=== PATIENT | female | born 1965 | race Caucasian/White ===

== ENCOUNTER 2016-05-08 19:09 | Inpatient (IN) | payer BC ==
--- NOTE | ~2016-05-08 | CN ---
Consultation Report [facility] [address] [place]. [address] NAME: GARY VIRK : 69 STATUS : ADM IN [facility]#: [id number] AGE: 51 ADM/REG DATE : 05/08/16 MR#: [id number] REPORT SERV DATE: 05/10/16 DICTATED BY: KWAKU MARES DATE: 05/10/16 REPORT STATUS : Draft TRANSCRIBED BY: MODL DATE: 05/10/16 INFECTIOUS DISEASE CONSULT DATE OF CONSULTATION: REASON FOR REFERRAL: Evaluation and treatment of gram-negative beata sepsis. HISTORY OF PRESENT ILLNESS: The patient is a 51-year-old female. She has history of peptic ulcer disease, past nephrolithiasis, supraventricular tachycardia. She has had GI bleeding before that necessitated partial bowel resection. She had a hysterectomy in 2014 and said she has begun to have more common and frequent urinary tract infection since then. She developed symptoms 1 just over a week ago with some dysuria, increased urinary frequency. 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 She had her urine checked in the ER. Urinalysis appeared to be infected with significant pyuria. It was not cultured. She was started empirically on Septra but continued to worsen and by the end of last week developed fevers and rigors, malaise, nausea, left flank pain. She came in, was admitted on the . She had fevers as high as 103, elevated white blood cell count. Urinalysis that again showed large leukocyte esterase, greater than 182 white blood cells. She was given a dose of Rocephin in the emergency room and then started on cefepime. Her temperature still spiked over 102 last night. White blood cell count improved. She still feels significant malaise and flu-like symptoms. The urine is growing E. coli, greater than 100,000 colonies that not surprisingly is resistant to trimethoprim sulfa, also resistant to ampicillin. It is sensitive to cefazolin and to gentamicin. Her blood cultures now positive one of two for gram-negative beata that appears to be E. coli. She did have both ovaries removed at the time of her hysterectomy in 2014 but has been on estrogen patches since then. PAST MEDICAL HISTORY: Otherwise unremarkable. MEDICATIONS: As mentioned above. ALLERGIES: SHE HAS NO KNOWN ANTIMICROBIAL ALLERGIES. SOCIAL HISTORY: She, as stated, works in the emergency room. 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 She is , nonsmoker. No history of alcohol or substance abuse. FAMILY HISTORY: Noncontributory. PHYSICAL EXAMINATION: GENERAL: She appears to not feel well but otherwise nontoxic. She is alert and oriented x3. VITAL SIGNS: Her temperature reached over 102 last night but at present is 99 with a pulse of 90, respirations 18, blood pressure 107/50, weight 103 kg. HEENT: Sclerae clear. No oral lesions. NECK: Supple without lymphadenopathy, meningeal signs. Consultation Report [place] [id number] [address] NAME: GARY VIRK : 69 STATUS : ADM IN PAT#: [id number] AGE: 51 ADM/REG DATE : 05/08/16 MR#: [id number] REPORT SERV DATE: 05/10/16 DICTATED BY: KWAKU MARES DATE: 05/10/16 REPORT STATUS : Draft TRANSCRIBED BY: NIDHI DATE: 05/10/16 LUNGS: Clear. HEART: Regular rate and rhythm. ABDOMEN: Soft, mildly tender without guarding or rebound. Positive bowel sounds are heard. EXTREMITIES: Without clubbing, cyanosis, or edema. No swollen, red, or hot joints. No rashes noted. IV site, left antecubital fossa shows no signs of inflammation. LABORATORY DATA: White count was 13.5 when she came in with an unremarkable differential. It is 7.8 today with hematocrit 34.3, platelets 180. BUN and creatinine 3 and 0.63. Procalcitonin surprisingly at admission was 0.38. Liver function tests within normal limits. Her abdomen and pelvis were CT'd when she came in without contrast and there was some subtle stranding of the perirenal fat planes but otherwise nothing seen. No evidence of stones or obstruction. IMPRESSION: Pyelonephritis with associated sepsis from an E. coli that was resistant to trimethoprim sulfa, she was being treated with an outpatient. RECOMMENDATION: 1. Continue the cefepime. 2. We will add gentamicin for the next couple of days to try to clear the bacteremia faster. 3. I will follow the patient with you. I appreciate very much your consulting on this patient. CLAUDE Kwaku Mares M.D. / [id number] CC: MD ТАТЬЯНА Bautista
--- NOTE | ~2016-05-08 | DS ---
Discharge Summary [facility] [address] [place]. [address] NAME: GARY VIRK : 69 STATUS : DIS IN PAT#: [id number] AGE: 51 ADM/REG DATE : 05/08/16 MR#: [id number] REPORT SERV DATE: 05/14/16 DICTATED BY: BERLIN HARTLEY DATE: 05/13/16 REPORT STATUS : Draft TRANSCRIBED BY: NIDHI DATE: 05/13/16 ADMISSION DATE: 05/08/2016 DISCHARGE DATE: 05/13/2016 DISCHARGE DIAGNOSES: Include: 1. Sepsis syndrome, present on admission. 2. Escherichia coli bacteremia. 3. Urinary tract infection, pyelonephritis, Escherichia coli. 4. Hypoalbuminemia. 5. Hypotension, that is resolved. 6. Constipation, that is resolved. 7. History of gastric bypass. DISCHARGE MEDICATIONS: As follows vitamin D3 10,000 units daily; Lexapro 20 mg daily; estradiol 0.1 mg patch topically Tuesday and ; Ambien 10 mg at bedtime p.r.n. for sleep; Phenergan 25 mg every 6 hours p.r.n.; Zofran 4 mg every 6 hours p.r.n. for nausea; vitamin B12 1000 mcg every 30 days; iron glycinate 28 mg daily; Zantac 150 mg at bedtime; Tylenol 500 to 1000 mg daily p.r.n. for fever; Women's Gummy vitamin 2 tablets daily; vitamin B12 2500 mcg sublingual daily p.r.n. for energy; and Cipro 500 mg p.o. twice a day for seven days, prescription written for that. HISTORY OF PRESENT ILLNESS: This is a very pleasant 51-year-old female, who presented with left flank pain and urinary tract infection. Please see initial H and P of Dr. Rik Thomas. The patient was admitted to the Hospitalist Service for further evaluation and treatment. She was placed on empiric antibiotic therapy. Lab work and cultures were obtained. CONSULTS DURING THIS ADMISSION: Include Infectious Disease, Dr. Koffi Cameron. PROCEDURES AND IMAGING DURING THIS ADMISSION: Include a CT of the abdomen and pelvis that showed no acute abdominal or pelvic pathology. HOSPITAL COURSE: She was continued on her IV antibiotics of cefepime and given IV hydration as well while cultures were followed as she did have some episodes of hypotension, but this improved with IV boluses. Infectious Disease, Dr. Cameron continue cefepime and did give dosage of gentamicin. The patient tolerated this well. Kidney function remained stable. She was able to moved out of the IMCU to a telemetry floor, where she did have some problems with constipation, but this resolved with administration of Dulcolax suppository. After discussion with Dr. Cameron, it was determined she would be able to be discharged home on seven more days of Cipro antibiotic. PICC line was discontinued, and she was discharged on 05/13/2016 with above medication regimen and I have updated the patient and the patient's at bedside, and they are in agreement with this plan. Going forward, I have encouraged her on her p.o. intake, in particularly protein. Given her low albumin and follow up with primary care as scheduled, and also have instructed to follow up outpatient Urology, given the frequency of her of urinary tract infections over the past few years. Greater than 30 minutes were spent for medication teaching, followup planning, and further Discharge Summary [address] [address] NAME: GARY VIRK : 69 STATUS : DIS IN PAT#: [id number] AGE: 51 ADM/REG DATE : 05/08/16 MR#: [id number] REPORT SERV DATE: 05/14/16 DICTATED BY: BERLIN HARTLEY DATE: 05/13/16 REPORT STATUS : Draft TRANSCRIBED BY: NIDHI DATE: 05/13/16 disposition. MIKAYLA/NIDHI Berlin Hartley NP / [id number] CC: Onur Boyd
--- NOTE | ~2016-05-08 | HP ---
History And Physical [place] [id number] [facility] [place]. [address] NAME: GARY VIRK : 69 STATUS : ADM IN [facility]#: [id number] AGE: 51 ADM/REG DATE : 05/08/16 MR#: [id number] REPORT SERV DATE: 05/09/16 DICTATED BY: RIK BARTON DATE: 05/08/16 REPORT STATUS : Draft TRANSCRIBED BY: MODL DATE: 05/08/16 DATE OF ADMISSION: 05/08/2016 CHIEF COMPLAINT: Left flank pain and urinary tract infection. HISTORY OF PRESENT ILLNESS: This is a 51-year-old female with a history of recent urinary tract infection being treated as outpatient, history of nephrolithiasis, peptic ulcer disease, history of GI bleed in the past, and history of SVT who presents to the emergency room at [facility] with the above-mentioned complaint. History is obtained from the patient, her daughter who is at bedside, and reviewing data available on the [employer] system here. According to the patient, she had been in her usual state of health until about a week or so ago when she started having symptoms of urinary tract infection including dysuria or increased frequency of urination. She was seen by her primary care physician, Dr. Julissa Zayas, who did the urinalysis, determined that was urinary tract infection and started her on oral outpatient Bactrim treatment. Unfortunately, she continued to get worse. Her symptoms worsened, and by last , about three days ago, she started experiencing increasing fevers with chills, nausea, and vomiting. Fevers were greater than 102 degrees Fahrenheit at home which she treated with [id number] antipyretics. Today, she started having severe shaking chills, had generalized malaise and body aches all over. She could not keep anything down and decided it was time to go to the emergency room to be evaluated. In the emergency room, initial workup including a urinalysis revealed urinary tract infection. She met criteria for sepsis with temperature greater than 102 degrees, heart rate 103, a white count of more than 13,000, and a urinary tract infection. She had acute pyelonephritis and Hospitalist Service is asked to admit her for further evaluation and treatment. At the time of my evaluation, she denied any chest pain, palpitations, or orthopnea. She had no cough, hemoptysis, night sweats, or weight loss. She has not had any recent falls or loss of consciousness. She has had fever and chills as mentioned above. She did have nausea with vomiting, although she did not have diarrhea. She did have dysuria with no history of recent hematemesis or hematochezia. No other history of recent travel or exposures other than those mentioned above. 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 PAST MEDICAL HISTORY: Significant for history of nephrolithiasis, history of SVT in the past, history of gastrointestinal bleed and peptic ulcer disease. She has mild depression as well. SOCIAL HISTORY: She does not smoke, drink, or use recreational drugs. FAMILY HISTORY: Noncontributory. MEDICATIONS: At home were reviewed by me in the chart today and reordered by me. History And Physical [address] [address] NAME: GARY VIRK : 69 STATUS : ADM IN [facility]#: [id number] AGE: 51 ADM/REG DATE : 05/08/16 MR#: [id number] REPORT SERV DATE: 05/09/16 DICTATED BY: RIK BARTON DATE: 05/08/16 REPORT STATUS : Draft TRANSCRIBED BY: NIDHI DATE: 05/08/16 REVIEW OF SYSTEMS: As in history of present illness. All other systems were reviewed in detail and are quite unremarkable. PHYSICAL EXAMINATION: GENERAL: This is a pleasant 51-year-old, not in any acute distress. HEENT: Head is atraumatic, normocephalic. She is alert, awake, and oriented to time, place, and person. Her pupils are equal, reacting to light and accommodating. External ocular muscles are intact. Membranes are moist and pink. Sclerae are nonicteric. NECK: Supple with no jugular venous distention, lymphadenopathy, or thyromegaly. LUNGS: Clear to auscultation with no wheezes, rubs, or crackles. HEART: Heart sounds are regular with no murmurs, rubs, or gallops. ABDOMEN: Soft, nontender. Bowel sounds are present. EXTREMITIES: Show no cyanosis, clubbing, or edema. NEUROLOGIC: Grossly intact. No focal sensory or motor deficits. Higher functions appear intact. Gait is not examined. VITAL SIGNS: Her temperature upon arriving at the ER was 99.1, again it was more than 102 at home. Her pulse was 103, respirations 26 a minute, blood pressure was 125/61, oxygen saturations were 97% breathing room air. LABORATORY DATA: Reviewed on the [employer] system showed a sodium of 139, potassium 3.7, chloride 105, and CO2 of 22. BUN was 8 with a creatinine of 0.83, blood glucose was 133. Her calcium was 8.3, magnesium was not checked. Her alkaline phosphatase was 120. ALT and AST were within normal limits. Lipase was 56. Her white blood cell count on a CBC showed was 13,500. Normal hemoglobin, hematocrit, and platelet count. She had a urinalysis that showed large leukocyte esterase, nitrite was positive. There were greater than 182 wbc's and 24 rbc's. There were many bacteria. No imaging was performed today in the emergency room. No EKG was done in the emergency room today. IMPRESSION: 1. Left flank pain. 2. Acute pyelonephritis. 3. Sepsis by criteria. 4. Leukocytosis. 5. History of nephrolithiasis. 6. Peptic ulcer disease. 7. History of gastrointestinal bleed. 8. Mild depression. 9. History of supraventricular tachycardia. PLAN: We will admit Ms Virk to the Hospitalist Service in the med/surg tele bed. We will start her on empiric IV antibiotics after cultures are drawn. We will start her on cefepime, follow Gram stain cultures and follow accordingly. We will also check her procalcitonin level. Her history of nephrolithiasis would certainly warrant CT scan of her History And Physical [address] [address] NAME: GARY VIRK : 69 STATUS : ADM IN PAT#: [id number] AGE: 51 ADM/REG DATE : 05/08/16 MR#: [id number] REPORT SERV DATE: 05/09/16 DICTATED BY: RIK BARTON DATE: 05/08/16 REPORT STATUS : Draft TRANSCRIBED BY: MODL DATE: 05/08/16 which we will order right away as a noncontrast study. We will start her on IV fluids for volume replacement. Check chemistry, electrolytes, and replete as needed. We will check her magnesium now and replace if needed. We will offer pain control with small doses of intravenous Dilaudid on an as-needed basis. We will also place her on unfractionated heparin for DVT prophylaxis while she is here. I have discussed the above plans with the patient. Her questions were answered, and she is agreeable to the above recommendations. Further recommendations will follow after we review the above tests. Hospitalist Service will be following her during her stay here. /NIDHI Rik Barton M.D. / [id number] CC: MD RON Bautista MARGARET
[2016-05-08 18:54] LABS: BASOPHILS 0.1 %; BASOPHILS ABSOLUTE 0.02 10/3/uL (0.0-0.16); EOSINOPHILS 0 %; HEMATOCRIT 40.6 % (36.0-48.0); HEMOGLOBIN 13.8 g/dL (12.0-16.0); IMMATURE GRANULOCYTES 0.3 %; IMMATURE GRANULOCYTES ABSOLUTE 0.04 10/3/uL (0.0-0.11); LYMPHOCYTES 6.9 %; LYMPHOCYTES ABSOLUTE 0.93 10/3/uL (0.67-4.30); MANUAL DIFF NO %; MEAN CORPUSCULAR HEMOGLOB 30.2 pg (26.0-34.0); MEAN CORPUSCULAR VOLUME 88.8 fL (80-100); MEAN PLATELET VOLUME 9.5 fL (9.2-13.0); MONOCYTES ABSOLUTE 1.35 10/3/uL (0.21-1.20); NEUTROPHILS 82.7 %; NEUTROPHILS ABSOLUTE 11.13 10/3/uL (2.02-8.40); PLATELET COUNT 206 10/3/uL (150-400); RBC DISTRIBUTION WIDTH 12.5 % (12.0-16.0); RED CELL COUNT 4.57 10/6/uL (4.0-5.6); WHITE BLOOD CELLS 13.5 10/3/uL (4.5-10.5)
[2016-05-08 18:59] LABS: ASCORBIC ACID (UR NOT ORDER) NEG (NEG); BILIRUBIN, URINE NEGATIVE (NEG); ER URINALYSIS TAT 0 Hrs 09 Mins; KETONE, URINE 20 MG/DL (NEG); LEUKOCYTE ESTERASE(NOT OR LARGE (NEG)
[2016-05-08 19:00] LABS: NITRITE (URINE) POS (NEG); WBC (NOT ORDERED) (RFLEX) > 182 (0-5)
[2016-05-08 19:10] LABS: ALBUMIN 3.3 G/DL (3.5-5.0); ALKALINE PHOSPHATASE 120 U/L (45-117); CALCIUM, SERUM 8.3 MG/DL (8.5-10.4); CHLORIDE, SERUM 105 MMOL/L (96-112); CREATININE 0.83 MG/DL (0.55-1.02); GFR AFRICAN AMERICAN 96 ML/MIN (>=60); GFR NON AFRICAN AMERICAN 83 ML/MIN (>=60); POTASSIUM, SERUM 3.7 MMOL/L (3.5-5.3); SGPT(ALT) 17 U/L (5-65); SODIUM, SERUM 139 MMOL/L (135-148); TOTAL BILIRUBIN 0.7 MG/DL (0-1.2); TOTAL PROTEIN 7.3 G/DL (6.0-8.5)
[2016-05-08 19:28] LABS: A/G RATIO 0.8 (0.7-1.9); BUN (BLOOD UREA NITROGEN) 8 MG/DL (6-23); CO2 (CARBON DIOXIDE) 22 MMOL/L (24-34); GLUCOSE, SERUM 133 MG/DL (60-99); SGOT(AST) 14 U/L (5-40)
[2016-05-08] MEDS ORDERED: LEXAPRO20 PO (19:47)
[2016-05-08] MEDS ORDERED: AMB10 PO (19:47)
[2016-05-08] MEDS ORDERED: ZOFRAN4 PO (19:48)
[2016-05-08] MEDS ORDERED: PR25 PO (19:48)
[2016-05-08] MEDS ORDERED: ZANTAC 150 PO (19:49)
[2016-05-08] MEDS ORDERED: IRON GLYCINATE PO (19:49)
[2016-05-08] MEDS ORDERED: B121000P IM (19:49)
[2016-05-08] MEDS ORDERED: VITAMIN D31000 UNIT PO (19:49)
[2016-05-08] MEDS ORDERED: MINIVELLE1 EAC1 TOP (19:50)
[2016-05-08] MEDS ORDERED: ACET500CAP PO (19:51)
[2016-05-08] MEDS ORDERED: BACDS PO (19:52)
[2016-05-08] MEDS ORDERED: [UNRECOGNIZED DRUG - OTHER] PO (19:53)
[2016-05-08] MEDS ORDERED: VITAMIN B-122500 MCG SL (19:57)
[2016-05-08 23:24] LABS: PROCALCITONIN 0.38 ng/mL (<0.5)
[2016-05-10 05:10] LABS: BASOPHILS 0.3 %; BASOPHILS ABSOLUTE 0.02 10/3/uL (0.0-0.16); EOSINOPHILS 0.1 %; EOSINOPHILS ABSOLUTE 0.01 10/3/uL (0.0-0.53); HEMOGLOBIN 11.3 g/dL (12.0-16.0); IMMATURE GRANULOCYTES 0.1 %; IMMATURE GRANULOCYTES ABSOLUTE 0.01 10/3/uL (0.0-0.11); LYMPHOCYTES 8.8 %; LYMPHOCYTES ABSOLUTE 0.69 10/3/uL (0.67-4.30); MEAN CORPUS HGB CONC 32.9 g/dL (32.0-36.0); MEAN CORPUSCULAR HEMOGLOB 29.6 pg (26.0-34.0); MEAN CORPUSCULAR VOLUME 89.8 fL (80-100); MEAN PLATELET VOLUME 9.6 fL (9.2-13.0); MONOCYTES 8.5 %; MONOCYTES ABSOLUTE 0.66 10/3/uL (0.21-1.20); NEUTROPHILS 82.2 %; NEUTROPHILS ABSOLUTE 6.41 10/3/uL (2.02-8.40); PLATELET COUNT 180 10/3/uL (150-400); RBC DISTRIBUTION WIDTH 12.5 % (12.0-16.0); RED CELL COUNT 3.82 10/6/uL (4.0-5.6)
[2016-05-10 05:13] LABS: HEMATOCRIT 34.3 % (36.0-48.0); MANUAL DIFF NO %; WHITE BLOOD CELLS 7.8 10/3/uL (4.5-10.5)
[2016-05-10 05:27] LABS: BUN (BLOOD UREA NITROGEN) 3 MG/DL (6-23); CALCIUM, SERUM 8.4 MG/DL (8.5-10.4); CHLORIDE, SERUM 105 MMOL/L (96-112); CO2 (CARBON DIOXIDE) 27 MMOL/L (24-34); CREATININE 0.63 MG/DL (0.55-1.02); GFR AFRICAN AMERICAN 122 ML/MIN (>=60); GFR NON AFRICAN AMERICAN 105 ML/MIN (>=60); GLUCOSE, SERUM 149 MG/DL (60-99); PHOSPHORUS, SERUM 1.8 MG/DL (2.5-4.5); POTASSIUM, SERUM 3.5 MMOL/L (3.5-5.3); SODIUM, SERUM 140 MMOL/L (135-148)
[2016-05-11 04:32] LABS: HEMATOCRIT 30.9 % (36.0-48.0); HEMOGLOBIN 10.3 g/dL (12.0-16.0); MANUAL DIFF YES %; MEAN CORPUS HGB CONC 33.3 g/dL (32.0-36.0); MEAN CORPUSCULAR HEMOGLOB 30.1 pg (26.0-34.0); MEAN CORPUSCULAR VOLUME 90.4 fL (80-100); MEAN PLATELET VOLUME 9.9 fL (9.2-13.0); PLATELET COUNT 146 10/3/uL (150-400); RBC DISTRIBUTION WIDTH 12.5 % (12.0-16.0); RED CELL COUNT 3.42 10/6/uL (4.0-5.6); WHITE BLOOD CELLS 4.2 10/3/uL (4.5-10.5)
[2016-05-11 04:51] LABS: BUN (BLOOD UREA NITROGEN) 3 MG/DL (6-23); CALCIUM, SERUM 7.7 MG/DL (8.5-10.4); CHLORIDE, SERUM 107 MMOL/L (96-112); CO2 (CARBON DIOXIDE) 26 MMOL/L (24-34); CREATININE 0.43 MG/DL (0.55-1.02); GFR AFRICAN AMERICAN 138 ML/MIN (>=60); GFR NON AFRICAN AMERICAN 119 ML/MIN (>=60); POTASSIUM, SERUM 3.7 MMOL/L (3.5-5.3); SODIUM, SERUM 142 MMOL/L (135-148)
[2016-05-11 04:52] LABS: SGOT(AST) 19 U/L (5-40); SGPT(ALT) 23 U/L (5-65); TOTAL BILIRUBIN 0.6 MG/DL (0-1.2)
[2016-05-11 04:54] LABS: A/G RATIO 0.7 (0.7-1.9); ALBUMIN 2.3 G/DL (3.5-5.0); ALKALINE PHOSPHATASE 81 U/L (45-117); GLOBULIN 3.2 G/DL (2.5-4.1); GLUCOSE, SERUM 99 MG/DL (60-99); TOTAL PROTEIN 5.5 G/DL (6.0-8.5)
[2016-05-11 05:20] LABS: BAND NEUTROPHILS 10 %; EOSINOPHILS 2 %; EOSINOPHILS ABSOLUTE (CALC) 0.08 10/3/uL (0.0-0.53); LYMPHOCYTES 25 %; LYMPHOCYTES ABSOLUTE (CALC) 1.05 10/3/uL (0.67-4.30); MONOCYTES 7 %; MONOCYTES ABSOLUTE (CALC) 0.29 10/3/uL (0.21-1.20); NEUTROPHILS ABSOLUTE (CALC) 2.77 10/3/uL (2.02-8.40); PLATELET ESTIMATE ADQ (ADEQUATE); RBC MORPHOLOGY NORM (NORMAL); SEGMENTED NEUTROPHIL (0) 56 %; TOTAL NUCLEATED CELLS 100
[2016-05-12 06:28] LABS: BASOPHILS 0.2 %; BASOPHILS ABSOLUTE 0.01 10/3/uL (0.0-0.16); EOSINOPHILS 1.2 %; EOSINOPHILS ABSOLUTE 0.05 10/3/uL (0.0-0.53); HEMATOCRIT 28.6 % (36.0-48.0); HEMOGLOBIN 9.6 g/dL (12.0-16.0); IMMATURE GRANULOCYTES 0.2 %; IMMATURE GRANULOCYTES ABSOLUTE 0.01 10/3/uL (0.0-0.11); LYMPHOCYTES 19.7 %; LYMPHOCYTES ABSOLUTE 0.82 10/3/uL (0.67-4.30); MEAN CORPUS HGB CONC 33.6 g/dL (32.0-36.0); MEAN CORPUSCULAR HEMOGLOB 29.7 pg (26.0-34.0); MEAN CORPUSCULAR VOLUME 88.5 fL (80-100); MEAN PLATELET VOLUME 9.9 fL (9.2-13.0); MONOCYTES 11.3 %; MONOCYTES ABSOLUTE 0.47 10/3/uL (0.21-1.20); NEUTROPHILS 67.4 %; NEUTROPHILS ABSOLUTE 2.81 10/3/uL (2.02-8.40); PLATELET COUNT 167 10/3/uL (150-400); RBC DISTRIBUTION WIDTH 12.7 % (12.0-16.0); RED CELL COUNT 3.23 10/6/uL (4.0-5.6); WHITE BLOOD CELLS 4.2 10/3/uL (4.5-10.5)
[2016-05-12 06:29] LABS: MANUAL DIFF NO %
[2016-05-12 06:41] LABS: BUN (BLOOD UREA NITROGEN) 5 MG/DL (6-23); CALCIUM, SERUM 8.2 MG/DL (8.5-10.4); CHLORIDE, SERUM 105 MMOL/L (96-112); CO2 (CARBON DIOXIDE) 28 MMOL/L (24-34); CREATININE 0.42 MG/DL (0.55-1.02); GFR AFRICAN AMERICAN 139 ML/MIN (>=60); GFR NON AFRICAN AMERICAN 120 ML/MIN (>=60); GLUCOSE, SERUM 96 MG/DL (60-99); PHOSPHORUS, SERUM 2.9 MG/DL (2.5-4.5); POTASSIUM, SERUM 4.1 MMOL/L (3.5-5.3); SODIUM, SERUM 140 MMOL/L (135-148)
[2016-05-12 13:44] LABS: PROCALCITONIN 0.26 ng/mL (<0.5)
[2016-05-13] MEDS ORDERED: CIP5 PO (16:09)
== END 2016-05-13 18:08 | disposition home or self-care (01) | DRG 871 ==
LOC: ER 19:09 → 2SO 22:19 → IMCU 05-10 16:36 → 6NO 05-11 19:31
PROVIDERS: Hospitalist; Internal Medicine; Internal Medicine Pulmonary Disease; Nurse Practitioner Family
PROC: 02HV33Z Insertion of Infusion Device into Superior Vena Cava, Percutaneous Approach (ICD-10-PCS; principal; 2016-05-10)
PROC: 4A02X4A Measurement of Cardiac Electrical Activity, Guidance, External Approach (ICD-10-PCS; 2016-05-10)
DX: A41.51 Sepsis due to Escherichia coli [E. coli] (principal); R65.21 Severe sepsis with septic shock; N10 Acute pyelonephritis; I47.1 Supraventricular tachycardia; K59.00 Constipation, unspecified; F32.9 Major depressive disorder, single episode, unspecified; B96.20 Unspecified Escherichia coli [E. coli] as the cause of diseases classified elsewhere; Z90.49 Acquired absence of other specified parts of digestive tract; Z90.710 Acquired absence of both cervix and uterus; Z16.29 Resistance to other single specified antibiotic; Z87.11 Personal history of peptic ulcer disease; Z87.442 Personal history of urinary calculi
CPT/HCPCS: 36569; 74176; 80048; 80053; 80170; 81001; 83690; 83735; 84100; 84145; 85025; 87040; 87077; 87086; 87150; 87186; 87641; 93005; 96374; 96375; 96376; 99285; A9270-GY; C1751; C9113; J0692; J1170; J1580; J2405; P9045